=== PATIENT | female | born 1990 | race Caucasian/White ===

== ENCOUNTER 2017-06-02 22:57 | Inpatient (IN) ==
[2017-06-02] MEDS ORDERED: ZOFRAN IV ONE (23:30)
[2017-06-02] MEDS ORDERED: DILAUDID IV ONE (23:30)
[2017-06-02] MEDS ORDERED: TORADOL IV ONE (23:30)
[2017-06-02] MEDS ORDERED: NS 1,000 ML IV ONE (23:31)
[2017-06-03] MEDS ORDERED: DILAUDID ONE ×2 (00:12→23:15)
[2017-06-03 00:14] LABS: MANUAL DIFF NEEDED? NO
[2017-06-03 00:20] LABS: BASO% 0.2 % (0.0-0.8); EOS# 0.05 X1000 (0.0-0.7); EOS% 0.6 % (0.0-10.0); HEMATOCRIT 36.1 % (37.0-47.0); HEMOGLOBIN 12.5 g/dL (12.0-16.0); LYMPH# 1.25 X1000 (1.2-3.4); LYMPH% 15.5 % (20.5-51.1); MCH 28.5 PG (27-31); MCHC 34.6 g/dL (33-37); MCV 82.4 FL (81-99); MONO# 0.86 X1000 (0.11-0.59); MONO% 10.6 % (1.7-9.3); MPV 9.6 FL (7.4-10.4); NEUT% 73.1 % (42.2-75.2); PLT 225 X1000 (130-400); RBC 4.38 XMIL (4.2-5.4)
[2017-06-03 00:53] LABS: ALBUMIN 4.2 g/dL (3.5-5.0); CALCIUM 9.3 mg/dL (8.8-10.2); POTASSIUM 3.4 mmol/L (3.5-5.1); TOTAL BILIRUBIN 0.74 mg/dL (0.20-1.00); TOTAL PROTEIN 7.1 g/dL (6.3-8.3)
[2017-06-03] MEDS ORDERED: NS 1,000 ML IV ONE (01:06)
[2017-06-03 02:06] LABS: URINE CULTURE NEEDED? NO; URINE MICRO REVIEW NEEDED? NO; URINE SOURCE CLEAN CATCH
[2017-06-03 02:19] LABS: BILIRUBIN URINE NEGATIVE (NEGATIVE); BLOOD URINE NEGATIVE (NEGATIVE); COLOR STRAW; GLUCOSE URINE NEGATIVE (NEGATIVE); LEUKOCYTES URINE NEGATIVE (NEGATIVE); NITRITE URINE NEGATIVE (NEGATIVE); PROTEIN URINE NEGATIVE (NEGATIVE); SP GRAVITY URINE 1.001; TURBIDITY URINE CLEAR (CLEAR); UROBILINOGEN URINE NORMAL (NORMAL)
[2017-06-03 02:21] LABS: UR EPITHELIAL CELLS <10 /HPF (<10); URINE BACTERIA NEGATIVE /HPF; URINE RBC <10 /HPF (<10); URINE WBC <10 /HPF (<10)
[2017-06-03] MEDS ORDERED: SODIUM CHLORIDE 0.9% INJ PRN (03:07)
[2017-06-03] MEDS ORDERED: DILAUDID IV PRN (03:07)
[2017-06-03] MEDS: NS 1,000 ML IV SCH ×4 (04:30→23:34)
[2017-06-03 06:30] LABS: MANUAL DIFF NEEDED? NO
[2017-06-03 06:45] LABS: BASO% 0.4 % (0.0-0.8); EOS# 0.06 X1000 (0.0-0.7); EOS% 1.2 % (0.0-10.0); HEMATOCRIT 32.6 % (37.0-47.0); HEMOGLOBIN 11.2 g/dL (12.0-16.0); LYMPH# 1.05 X1000 (1.2-3.4); LYMPH% 21.3 % (20.5-51.1); MCH 28.6 PG (27-31); MCHC 34.4 g/dL (33-37); MCV 83.2 FL (81-99); MONO# 0.49 X1000 (0.11-0.59); MPV 10.1 FL (7.4-10.4); NEUT% 67.1 % (42.2-75.2); PLT 202 X1000 (130-400); RBC 3.92 XMIL (4.2-5.4)
[2017-06-03 07:04] LABS: ALBUMIN 3.7 g/dL (3.5-5.0); CALCIUM 8.2 mg/dL (8.8-10.2); POTASSIUM 3.7 mmol/L (3.5-5.1)
--- NOTE | 2017-06-03 10:52 | Diag Imaging Result Doc PS360 ---
EXAM: HIDA SCAN W/ EJECTION FRACTION HISTORY: Abdominal pain, N/V TECHNIQUE: Hepatobiliary scan with ejection fraction, 3.3 mCi of technetium 99m Choletec COMMENT: There is activity in the gallbladder by 16 minutes and in the small bowel by at least 26 minutes. Following fatty meal ministration there is only 10% of the activity in the gallbladder ejected. IMPRESSION: Abnormal ejection fraction. The possibility of chronic cholecystitis cannot be excluded. Electronically signed by Harsha Gee 06/03/2017 10:50 AM
[2017-06-03] MEDS: PHENERGAN IV PRN ×2 (23:22→23:37)
[2017-06-04] MEDS: ZOFRAN IV PRN ×3 (05:22→21:56)
[2017-06-04 06:24] LABS: BASO% 0.6 % (0.0-0.8); EOS# 0.11 X1000 (0.0-0.7); EOS% 2.2 % (0.0-10.0); HEMOGLOBIN 10.9 g/dL (12.0-16.0); LYMPH# 1.12 X1000 (1.2-3.4); LYMPH% 22.2 % (20.5-51.1); MANUAL DIFF NEEDED? NO; MCH 28.2 PG (27-31); MCHC 34.1 g/dL (33-37); MCV 82.9 FL (81-99); MONO# 0.64 X1000 (0.11-0.59); MONO% 12.7 % (1.7-9.3); MPV 9.9 FL (7.4-10.4); NEUT% 62.3 % (42.2-75.2); PLT 188 X1000 (130-400); RBC 3.86 XMIL (4.2-5.4)
[2017-06-04] MEDS: PRILOSEC PO SCH (06:32)
[2017-06-04 06:54] LABS: ALBUMIN 3.6 g/dL (3.5-5.0); CALCIUM 7.9 mg/dL (8.8-10.2); POTASSIUM 3.3 mmol/L (3.5-5.1)
[2017-06-04] MEDS: NS 1,000 ML IV SCH ×2 (07:48→16:42)
[2017-06-04] MEDS: PATIENT'S OWN MED PO SCH (08:35)
[2017-06-04] MEDS: DILAUDID IV PRN (12:46)
[2017-06-04] MEDS ORDERED: DULCOLAX PR PRN (14:11)
[2017-06-04] MEDS ORDERED: MILK OF MAGNESIA PO ONE (14:11)
--- NOTE | 2017-06-04 14:40 | Diag Imaging Result Doc PS360 ---
EXAM: ABDOMEN FLAT/UPRIGHT HISTORY: abdominal pain TECHNIQUE: Flat and upright abdomen COMMENT: There is some stool and gas in the colon without evidence of dilatation. The stomach and small bowel are not distended. There is no evidence organomegaly mass or abnormal calcification. The regional skeleton is intact. IMPRESSION: Minimal constipation. Electronically signed by Harsha Gee 06/04/2017 2:38 PM
[2017-06-04] MEDS: MIRALAX PO SCH (16:39)
[2017-06-05] MEDS: NS 1,000 ML IV SCH ×3 (01:29→17:11)
[2017-06-05] MEDS: PRILOSEC PO SCH (06:09)
[2017-06-05] MEDS: ZOFRAN IV PRN (06:59)
[2017-06-05 07:44] LABS: ALBUMIN 3.7 g/dL (3.5-5.0); CALCIUM 8.3 mg/dL (8.8-10.2); POTASSIUM 3.1 mmol/L (3.5-5.1)
[2017-06-05] MEDS: MIRALAX PO SCH (10:29)
[2017-06-05] MEDS: PATIENT'S OWN MED PO SCH (10:29)
[2017-06-05 11:34] LABS: URINE MICRO REVIEW NEEDED? NO; URINE SOURCE VOIDED
[2017-06-05 11:38] LABS: BILIRUBIN URINE NEGATIVE (NEGATIVE); BLOOD URINE NEGATIVE (NEGATIVE); COLOR STRAW; GLUCOSE URINE NEGATIVE (NEGATIVE); LEUKOCYTES URINE NEGATIVE (NEGATIVE); NITRITE URINE NEGATIVE (NEGATIVE); PH URINE 6.5; PROTEIN URINE NEGATIVE (NEGATIVE); TURBIDITY URINE CLEAR (CLEAR); UR EPITHELIAL CELLS <10 /HPF (<10); URINE BACTERIA NEGATIVE /HPF; URINE RBC <10 /HPF (<10); URINE WBC <10 /HPF (<10); UROBILINOGEN URINE NORMAL (NORMAL)
[2017-06-05] MEDS: DILAUDID IV PRN (20:48)
[2017-06-06] MEDS: ZOFRAN IV PRN ×2 (03:54→10:30)
[2017-06-06] MEDS: NS 1,000 ML IV SCH ×4 (05:07→17:43)
[2017-06-06 07:42] LABS: HEMATOCRIT 35.6 % (37.0-47.0); HEMOGLOBIN 12.3 g/dL (12.0-16.0); MCH 28.9 PG (27-31); MCHC 34.6 g/dL (33-37); MCV 83.6 FL (81-99); MPV 10.3 FL (7.4-10.4); RBC 4.26 XMIL (4.2-5.4)
[2017-06-06] MEDS: PRILOSEC PO SCH (07:46)
[2017-06-06 07:54] LABS: ALBUMIN 4.1 g/dL (3.5-5.0); CALCIUM 8.7 mg/dL (8.8-10.2)
[2017-06-06 08:02] LABS: IRON SATURATION 30 %; TIBC 253 ug/dL; TOTAL IRON 77 ug/dL (49-151); UNBOUND IRON 176 ug/dL (112-346)
[2017-06-06 08:19] LABS: FERRITIN 174 ng/mL (13-150); LDH 188 U/L (135-214)
[2017-06-06] MEDS ORDERED: DIPRIVAN 1% ONE (08:49)
[2017-06-06] MEDS ORDERED: VERSED ONE (08:49)
[2017-06-06] MEDS ORDERED: XYLOCAINE-MPF 2% ONE (08:58)
[2017-06-06] MEDS ORDERED: APRESOLINE ONE (09:15)
[2017-06-06] MEDS: PATIENT'S OWN MED PO SCH (10:31)
[2017-06-06] MEDS: MIRALAX PO SCH ×2 (10:31→20:59)
[2017-06-06] MEDS ORDERED: KLOR-CON PO SCH (13:30)
[2017-06-06] MEDS ORDERED: ATIVAN IV ONE (15:30)
--- NOTE | 2017-06-06 15:31 | Diag Imaging Result Doc PS360 ---
GASTRIC EMPTYING - 06/06/2017 INDICATION: nausea with vomiting TECHNIQUE: 400 uCi of labeled solid food was ingested COMPARISON: None FINDINGS: The T1 half of gastric emptying is 564 minutes. This is severely delayed. IMPRESSION: Severely delayed gastric emptying rate compatible with gastroparesis. Electronically signed by Virgilio Balderas 06/06/2017 3:29 PM
--- NOTE | 2017-06-06 15:39 | EKG Report ---
Test Performed on : 06/06/2017 3:07:26 PM Test Reason : CAT CALL Blood Pressure : / mmHG Vent. Rate : 112 BPM Atrial Rate : 112 BPM P-R Int : 130 ms QRS Dur : 076 ms QT Int : 396 ms P-R-T Axes : 077 087 048 degrees QTc Int : 540 ms Sinus tachycardia. Possible Left atrial enlargement Nonspecific ST abnormality Abnormal ECG When compared with ECG of 06-JUN-2017 15:06, (Unconfirmed) No significant change was found Confirmed by Adiel TORRES, Fab Rogers ([id number]) on 06/07/2017 9:27:46 AM
[2017-06-06] MEDS ORDERED: ATIVAN PO PRN (16:38)
[2017-06-06] MEDS: REGLAN PO SCH (20:55)
[2017-06-06] MEDS: POTASSIUM CHLORIDE 20% LIQUID PO SCH (20:56)
[2017-06-07] MEDS: NS 1,000 ML IV SCH ×2 (02:24→09:17)
[2017-06-07 06:35] LABS: HEMOGLOBIN 11.5 g/dL (12.0-16.0); MCH 28.5 PG (27-31); MCHC 33.8 g/dL (33-37); MCV 84.4 FL (81-99); MPV 10.1 FL (7.4-10.4); RBC 4.03 XMIL (4.2-5.4)
[2017-06-07] MEDS: REGLAN PO SCH ×2 (06:36→11:55)
[2017-06-07 06:50] LABS: ALBUMIN 3.7 g/dL (3.5-5.0); CALCIUM 7.7 mg/dL (8.8-10.2); POTASSIUM 3.2 mmol/L (3.5-5.1)
[2017-06-07] MEDS ORDERED: PRILOSEC PO SCH (07:00)
[2017-06-07 08:06] VITALS: BP 133/88
[2017-06-07] MEDS: POTASSIUM CHLORIDE 20% LIQUID PO SCH (09:14)
[2017-06-07] MEDS: MIRALAX PO SCH (09:14)
[2017-06-07] MEDS: BENTYL PO SCH ×3 (09:14→12:00)
[2017-06-07] MEDS: PATIENT'S OWN MED PO SCH (09:14)
[2017-06-07] MEDS ORDERED: FLUZONE QUAD 2017-2018 SYRINGE IM ONE (13:39)
== END 2017-06-07 14:17 | disposition home or self-care (01) ==
LOC: ED 22:57 → 3N 06-03 03:28 → SUATTDRO 06-03 03:28
PROVIDERS: ATTEND Emergency Medicine